=== PATIENT | female | born 1975 | race Caucasian/White ===

== ENCOUNTER 2017-04-17 10:30 | Day surgery (SDC) | payer OTHER ==
--- NOTE | 2017-04-17 09:32 | GHP ---
[f rep st] PREOP HISTORY AND PHYSICAL DATE OF ADMISSION: 04/17/2017 CHIEF COMPLAINT: Breast hypertrophy. HISTORY OF PRESENTING COMPLAINT: The patient is a 41-year-old woman, who has been bothered by breast hypertrophy including neck, back, and shoulder pain for several years. PAST MEDICAL HISTORY: Unremarkable. MEDICATIONS: She is on no medications. ALLERGIES: She has an allergy to Augmentin. SURGICAL HISTORY: Includes endoscopic sinus surgery in 1989. PHYSICAL EXAMINATION: GENERAL: She is a healthy-looking 41-year-old female. CARDIOVASCULAR: Heart sounds are normal. RESPIRATORY: Chest is clear with good air entry. IMPRESSION: She is fit for surgery. PLAN: Bilateral breast reduction. /[id number]/MODL MTDD
[2017-04-17] MEDS ORDERED: levOFLOXACIN 500 MG/DEXTROSE 100 ML IV ONE (11:00)
[2017-04-17] MEDS ORDERED: LR 1,000 ML IV SCH (11:00)
[2017-04-17] MEDS ORDERED: LIDO/EPI 1% **for epidural** 30 ML SDV ONE ×2 (11:29→11:30)
[2017-04-17] MEDS ORDERED: fentaNYL 100 MCG/2 ML INJ ONE ×3 (11:54→14:32)
[2017-04-17] MEDS ORDERED: PROPOFOL 200 MG/20 ML VIAL ONE (11:55)
[2017-04-17] MEDS ORDERED: LIDOCAINE 2% 100 MG/5 ML SYR ONE (11:57)
[2017-04-17] MEDS ORDERED: DEXAMETHASONE 4 MG/ML VIAL ONE ×2 (11:57→15:40)
[2017-04-17] MEDS ORDERED: ROCURONIUM 50 MG/5 ML VIAL ONE (11:57)
[2017-04-17] MEDS ORDERED: ONDANSETRON 4 MG/2 ML VIAL ONE ×3 (11:57→17:00)
[2017-04-17] MEDS ORDERED: MIDAZOLAM 2 MG/2 ML VIAL ONE (12:00)
[2017-04-17] MEDS ORDERED: MIDAZOLAM 2 MG/2 ML VIAL IVP ONE (12:15)
[2017-04-17] MEDS ORDERED: HYDROmorphONE/DILAUDID 1 MG/ML SYR ONE (14:32)
--- NOTE | 2017-04-17 14:48 | GOP ---
[f rep st] OPERATIVE REPORT DATE OF OPERATION: 04/17/2017 SURGEON: Ross Garduno MD PREOPERATIVE DIAGNOSIS: Breast hypertrophy. POSTOPERATIVE DIAGNOSIS: Breast hypertrophy. PROCEDURE PERFORMED: Bilateral breast reduction. FINDINGS: DESCRIPTION OF PROCEDURE: With patient lying supine and under general anesthesia, anterior chest re gion was prepped and draped in the usual fashion. Incisions were made according to preoperative kei benjamin for vertical pattern breast reduction with superomedial pedicle technique. Pedicles were de-e pithelialized. Superior and lateral breast flaps were developed, and the underlying gland was then reduced primarily in the lateral and superior directions bilaterally. This resulted in removal of 4 30 g of tissue on the right and 435 g of tissue on the left. Bleeders were controlled with electroc autery. Jori-Bal drains were placed bilaterally, and closure was carried out of the entire inc ision on both sides with 3-0 Stratafix running subcuticular sutures. Dressing of Steri-Strips and g auze were applied. The procedure was tolerated well. Estimated blood loss, 25 mL. /[id number]/MODL
[2017-04-17] MEDS ORDERED: SCOPOLAMINE HYDROBROMIDE 1.5 MG PATCH TD ONE (15:27)
== END 2017-04-17 19:24 | disposition home or self-care (01) ==
LOC: FSGY 10:30
PROVIDERS: ATTEND Plastic Surgery
PROC: 0HBV0ZZ Excision of Bilateral Breast, Open Approach (ICD-10-PCS; principal; 2017-04-17 12:00)
DX: N62 Hypertrophy of breast (principal); M54.2 Cervicalgia; M54.6 Pain in thoracic spine; M25.511 Pain in right shoulder; M25.512 Pain in left shoulder
CPT/HCPCS: J1100; J1170; J1956; J2001; J2250; J2405; J2704; J3010

== ENCOUNTER → 2018-12-22 | Outpatient (CLI) | payer OTHER | LOC: FIMAGING 13:12 | PROVIDERS: ATTEND Obstetrics & Gynecology | DX: Z12.31 Encounter for screening mammogram for malignant neoplasm of breast (principal) ==